=== PATIENT | female | born 1975 | race Two or more races ===

== ENCOUNTER 2021-07-18 14:45 | Emergency (ER) | payer OTHER ==
[2021-07-18 15:16] VITALS: BP 123/84; PULSE 77; TEMP 97.2; BMI 27.3
[2021-07-18] MEDS ORDERED: KETOROLAC TROMETHAMINE 30 MG/1 ML VIAL IM ONE (16:48)
[2021-07-18] MEDS ORDERED: KETOROLAC TROMETHAMINE 30 MG/1 ML VIAL ONE (16:50)
== END 2021-07-18 18:50 | disposition home or self-care (01) ==
LOC: JER 14:45 → JERFT 14:45 → JER 18:50
PROC: 3E023GC Introduction of Other Therapeutic Substance into Muscle, Percutaneous Approach (ICD-10-PCS; principal; 2021-07-18)
DX: M79.604 Pain in right leg (principal); M54.2 Cervicalgia
CPT/HCPCS: 72050-TC-FY; 73523-TC-FY; 73552-TC-RT-FY; 99284-25